=== PATIENT | male | born 1960 | race Caucasian/White ===

== ENCOUNTER 2017-09-21 19:15 | Emergency (ER) | payer BC ==
[~2017-09-21] VITALS: Ht 177.8 cm; Wt 89.1 kg
[2017-09-21 20:52] LABS: BASOPHIL (%) 0.8 % (0-1); BASOPHIL COUNT 0.1 K/uL (0-0.1); EOSINOPHIL (%) 2.1 % (0-5); EOSINOPHIL COUNT 0.2 K/uL (0-0.3); HEMATOCRIT 44.2 % (38.0-50.0); HEMOGLOBIN 15.5 G/DL (12.5-16.6); IMMATURE GRANULOCYTE (%) 0.3 % (0.0-0.7); LYMPHOCYTE (%) 33.1 % (15-42); LYMPHOCYTE COUNT 3.7 K/uL (1.0-2.8); MCH 30.3 PG (29.0-34.0); MCHC 35.1 G/DL (30.0-36.0); MCV 86.3 FL (86-99); MONOCYTE (%) 5.7 % (3-12); MONOCYTE COUNT 0.6 K/uL (0-0.8); NEUTROPHIL COUNT 6.4 K/uL (1.8-6.4); PLATELET COUNT 236 K/uL (156-360); RBC DIS.WIDTH-CV 13.1 % (11.8-14.6); RBC DIS.WIDTH-SD 40.7 % (39-53); RED BLOOD COUNT 5.12 M/uL (4.00-5.50); WHITE BLOOD COUNT 11.1 K/uL (4.1-10.2)
[2017-09-21 21:04] LABS: CHLORIDE 108 mEq/L (99-109); POTASSIUM 3.6 mEq/L (3.7-5.4); SODIUM 141 mEq/L (136-147)
[2017-09-21 21:05] LABS: GLUCOSE 93 mg/dL (70-99)
[2017-09-21 21:09] LABS: GFR ESTIMATE (CALCULATED) > 59 mL/min/ (58.99-99999)
[2017-09-21 21:10] LABS: UREA NITROGEN (BUN) 13 mg/dL (9-23)
[2017-09-21] MEDS ORDERED: OMEPRAZOLE20 MG PO (22:25)
[2017-09-21 23:07] VITALS: BP 136/87
== END 2017-09-21 23:15 | disposition home or self-care (01) ==
LOC: EME 19:15
PROVIDERS: Emergency Medicine
DX: R22.1 Localized swelling, mass and lump, neck (principal)
CPT/HCPCS: 70491; 80048; 85025; 99281; 99284